=== PATIENT | female | born 1990 | race Hispanic/Latino ===

== ENCOUNTER 2023-05-16 10:54 | Emergency (ER) | payer OTHER ==
[~2023-05-16] VITALS: Ht 165.1 cm; Wt 93.3 kg
[2023-05-16] MEDS ORDERED: ACETAMINOPHEN 500 MG TAB PO ONE (12:30)
[2023-05-16] MEDS ORDERED: AMOX875T2 PO (13:53)
[2023-05-16 14:00] VITALS: BP 128/75; TEMP 98.1; O2SAT 98
== END 2023-05-16 14:05 | disposition home or self-care (01) ==
LOC: M ED 10:54
DX: J01.90 Acute sinusitis, unspecified (principal)